=== PATIENT | female | born 1960 | race Native Hawaiian/Other Pacific Islander ===

== ENCOUNTER 2017-09-09 12:15 | Emergency (ER) | payer OTHER ==
[2017-09-09 12:31] VITALS: RESP 20; TEMP 98.9
[2017-09-09 13:14] LABS: BASO # 0.1 K/uL (0.0-0.2); BASO % 1.6 % (0.0-2.0); EOS # 0.1 K/uL (0.0-0.7); EOS % 2.1 % (0.0-4.0); HEMOGLOBIN 12.1 g/dL (11.0-16.0); LYMPH # 1.3 K/uL (1.0-4.3); LYMPH % 33.3 % (20.0-40.0); MEAN CELL VOLUME 85.5 fL (81.0-99.0); MEAN CORPUSCULAR HEMOGLOBIN 28.8 pg (27.0-31.0); MEAN CORPUSCULAR HGB CONC 33.7 g/dL (33.0-37.0); MEAN PLATELET VOLUME 7.3 fL (7.2-11.7); MONO # 0.3 K/uL (0.0-0.8); MONO % 7.6 % (0.0-10.0); NEUT # 2.1 K/uL (1.8-7.0); NEUT % 55.4 % (50.0-75.0); RBC 4.21 Mil/uL (3.80-5.20); RED CELL DISTRIBUTION WIDTH 14.3 % (11.5-14.5); WHITE BLOOD COUNT 3.9 K/uL (4.8-10.8)
[2017-09-09 13:28] LABS: ALB/GLOB RATIO 1.2 (1.0-2.1); ALT/SGPT 35 U/L (9-52); AST/SGOT 31 U/L (14-36); BLOOD UREA NITROGEN 15 mg/dL (7-17); GFR AFRICAN-AMERICAN > 60; GFR NON-AFRICAN AMERICAN > 60
[2017-09-09 13:43] LABS: B-TYPE NATRIURETIC PEPTIDE 74.7 pg/mL (0-900)
--- NOTE | 2017-09-09 14:05 | C.PDOC ---
History Of Present Illness 57 year old female presents to the ED for evaluation of chest pain which began yesterday morning. Patient describes her symptoms as a sharp pressure-like pain. She suspects symptoms may be caused by history of reflux. Patient has a remote history of stress test in 2013, which was negative. She denies fever, chills. Time Seen by Provider: 09/09/17 13:00 Chief Complaint (Nursing): Chest Pain History Per: Patient History/Exam Limitations: no limitations Onset/Duration Of Symptoms: Hrs Current Symptoms Are (Timing): Still Present Quality: Sharp, Pressure, "Pain" Additional History Per: Patient Past Medical History Reviewed: Historical Data, Nursing Documentation, Vital Signs Vital Signs: Last Vital Signs Temp 98.9 F 09/09/17 14:11 Pulse 65 09/09/17 14:11 Resp 20 09/09/17 14:11 BP 133/63 09/09/17 14:11 Pulse Ox 97 09/09/17 16:01 - Medical History PMH: Asthma Surgical History: No Surg Hx Family History: States: Unknown Family Hx - Social History Hx Tobacco Use: No Hx Alcohol Use: No Hx Substance Use: No - Immunization History Hx Tetanus Toxoid Vaccination: No Hx Influenza Vaccination: No Hx Pneumococcal Vaccination: No Review Of Systems Constitutional: Negative for: Fever, Chills Cardiovascular: Positive for: Chest Pain Physical Exam - Physical Exam Appears: Non-toxic, No Acute Distress Skin: Normal Color, Warm, Dry Head: Atraumatic, Normacephalic Eye(s): bilateral: Normal Inspection Oral Mucosa: Moist Neck: Supple Chest: Symmetrical, No Deformity, No Tenderness Cardiovascular: Rhythm Regular, No Murmur Respiratory: Normal Breath Sounds, No Rales, No Rhonchi, No Wheezing Extremity: Normal ROM, Capillary Refill (less than 2 seconds ) Neurological/Psych: Oriented x3, Normal Speech, Normal Cognition ED Course And Treatment - Laboratory Results Result Diagrams: 09/09/17 13:06 09/09/17 13:06 ECG: Interpreted By Me, Viewed By Me ECG Rhythm: Sinus Rhythm Interpretation Of ECG: Normal Sinus Rhythm at rate 66bpm. Nonspecific ST/T wave changes. Rate From EC O2 Sat by Pulse Oximetry: 97 (on RA) Pulse Ox Interpretation: Normal - Other Rad CXR X-Ray: Interpreted by Me, Viewed By Me, Read By Radiologist Interpretation: HISTORY: cp. COMPARISON: Chest radiograph dated 07/15/2015. FINDINGS: LUNGS: No active pulmonary disease. PLEURA: No significant pleural effusion identified, no pneumothorax apparent. CARDIOVASCULAR: Cardiomediastinal silhouette stably enlarged. OSSEOUS STRUCTURES: Unchanged. VISUALIZED UPPER ABDOMEN: Normal. OTHER FINDINGS: None. IMPRESSION: No active disease. Medical Decision Making Medical Decision Making: cp ro acs - labs imaging pending Progress: Bloodwork and CXR ordered. Protonix IVP administered. pt reassesed refuses any further observation in the hospital. has outpt cards appointment tommorow. advise strict return precautions. no ekg changes trop neg x >48 hours onset. Disposition - Disposition Referrals: Alberto Navarro MD [Staff Provider] - Disposition: HOME/ ROUTINE Disposition Time: 04:00 Condition: STABLE Additional Instructions: you are declining observation in the hospital. you are able to return to any er with any concern at any time. Instructions: Chest Pain Forms: [facility] ([place]) - Clinical Impression Clinical Impression: Chest pain - Scribe Statement The provider has reviewed the documentation as recorded by the Scribe (Zoya Méndez) Provider Attestation: All medical record entries made by the Scribe were at my direction and personally dictated by me. I have reviewed the chart and agree that the record accurately reflects my personal performance of the history, physical exam, medical decision making, and the department course for this patient. I have also personally directed, reviewed, and agree with the discharge instructions and disposition.
[2017-09-09 14:13] VITALS: BP 133/63; PULSE 65
--- NOTE | 2017-09-09 14:36 | RAD ---
HISTORY: cp COMPARISON: Chest radiograph dated 07/15/2015. FINDINGS: LUNGS: No active pulmonary disease. PLEURA: No significant pleural effusion identified, no pneumothorax apparent. CARDIOVASCULAR: Cardiomediastinal silhouette stably enlarged. OSSEOUS STRUCTURES: Unchanged. VISUALIZED UPPER ABDOMEN: Normal. OTHER FINDINGS: None. IMPRESSION: No active disease.
[2017-09-09 16:02] VITALS: O2SAT 97
--- NOTE | 2017-09-10 19:19 | CARD ---
APPROVED REPORT EKG Measurement Heart [id number] <Conclusion> Normal sinus rhythm Low voltage QRS Borderline ECG
== END 2017-09-09 14:11 | disposition home or self-care (01) ==
LOC: C.ER 12:15
DX: R07.9 Chest pain, unspecified (principal)
CPT/HCPCS: 71045; 80053; 83880; 84484; 85025; 93005; 96374; 99283; C9113

== ENCOUNTER 2018-07-14 13:40 | Outpatient (CLI) | payer OTHER | END 2018-07-14 13:41 | disposition home or self-care (01) | LOC: C.RADIC 13:40 | DX: M79.606 Pain in leg, unspecified (principal) ==